=== PATIENT | female | born 1950 ===

== ENCOUNTER 2017-01-07 10:05 | Day surgery (SDC) | payer MEDICARE ==
[2016-12-31 09:49] VITALS: BMI 35.1
--- NOTE | 2017-01-07 12:27 | CP.SDSHP ---
Same Day Surgery H & P - History Proposed Procedure: Excision of Right face skin lesion. Excision of left medial breast skin lesion - Previous Medical/Surgical History Cardiac: Hypertension Pain: 0. No Pain - Allergies Allergies: Allergies No Known Allergies Allergy (Verified 12/31/16 09:39) - Physical Exam Vital Signs: Vital Signs 01/07/17 01/07/17 10:28 10:33 Temperature 97.6 F Pulse Rate 72 72 Respiratory 18 Rate Blood Pressure 135/82 O2 Sat by Pulse 98 Oximetry Mental Status: Alert & Oriented x3 Neuro: WNL GI: WNL - {Optional Preform as Required} Breast: Other (Left medial breast flat light brown maccule) - Impression Impression: 66F with Right face skin lesion, Left medial breast skin lesion Pt. Evaluated Today:Candidate for Anesthesia & Procedure: Yes - Date & Time Date: 01/07/17 Time: 12:27 Short Stay Discharge - Short Stay Discharge Admitting Diagnosis/Reason for Visit: D22.9 Disposition: HOME/ ROUTINE Referrals: Lam Lakhani MD [Primary Care Provider] - Progress Note/Discharge Note with Instructions: Patient is cleared for discharge. 1. Follow up with Dr. Maldonado in 10 days. Call for appointment 2. Take OTC Tylenol for pain as needed 3. You may shower in 48 hours, do not soak. 4. Return to the ER with any concerning symptoms.
[2017-01-07] MEDS ORDERED: Midazolam 2 MG/2 ML VIAL ONE (12:28)
[2017-01-07] MEDS ORDERED: Lidocaine 1% Inj (20ml) ONE (12:34)
[2017-01-07] MEDS ORDERED: Lidocaine 2% w Epi 1:100,000 Inj IJ ONE (12:34)
[2017-01-07] MEDS ORDERED: Bupivacaine 0.5% Inj(30mL) ONE (12:34)
[2017-01-07] MEDS ORDERED: Lactated Ringer's 1,000 ML IV ONE (12:42)
[2017-01-07] MEDS ORDERED: Metoprolol 1 mg/ml Inj IVP ONE (13:19)
[2017-01-07] MEDS ORDERED: Lactated Ringer's 1,000 ML IV SCH (13:24)
[2017-01-07] MEDS ORDERED: HYDROmorphone 0.5 mg/0.5 ml ISec IVP PRN (13:24)
[2017-01-07] MEDS ORDERED: Oxycodone/Acetaminophen 5/325 mg Tab PO PRN (13:32)
--- NOTE | 2017-01-07 14:35 | PCM.SURG1 ---
Surgeon's Initial Post Op Note - Surgeon's Notes Surgeon: Dr. Maldonado Piece Worker: Alvina PGY1 Type of Anesthesia: IV Sedation, Local Anesthesia Administered By: Dr. Neil Pre-Operative Diagnosis: Right Chin sikn lesion. Left medial breast skin lesion Operative Findings: same Post-Operative Diagnosis: same Operation Performed: Excision of right chin and left medial breast skin lesions Specimen/Specimens Removed: Right chin skin lesion. Left breast skin lesion Estimated Blood Loss: EBL {In ML}: 3 Blood Products Given: N/A Drains Used: No Drains Post-Op Condition: Good Date of Surgery/Procedure: 01/07/17 Time of Surgery/Procedure: 13:30
[2017-01-07 16:04] VITALS: BP 115/64; PULSE 66; RESP 18; TEMP 98.4
[2017-01-07 16:06] VITALS: O2SAT 97
--- NOTE | 2017-01-07 21:37 | OP ---
PROCEDURE DATE: 01/07/2017 PREOPERATIVE DIAGNOSES: Skin lesion, right chin. Skin lesion, medial left breast. SURGEON: Dr. Maldonado. LIBERAL ARTS DEAN: Dr. Tinsley. TYPE OF ANESTHESIA: Local with IV sedation. ANESTHESIA ADMINISTERED BY: Dr. Neil, DESCRIPTION OF PROCEDURE: With the patient in the supine position, having received IV sedation, the right lower face, neck, and upper chest were prepped and draped in the usual sterile manner. The patient had a 5 mm elevated pigmented lesion noted just beneath the chin line on the right side of the face. The skin surrounding this was infiltrated with 1% lidocaine, an elliptical incision was made. The lesion was excised with a full-thickness skin. Closure was performed with interrupted sutures of 5-0 Prolene. Attention was turned to the chest, where a 1 x 1 cm tail brown skin lesion which was slightly elevated was noted overlying the sternum just medial to the left breast. The skin surrounding this was infiltrated with 1% lidocaine and the lesion appeared to be more vertically oriented and elliptical incision was made in a vertical direction, taken down through the full-thickness skin, and the lesion was excised. The lesion appeared to extend through the full-thickness skin with some discoloration, possibly vascular malformation in the subcutaneous tissue beneath it, which was also excised. The skin was then closed with interrupted mattress sutures of 5-0 Prolene. Dry sterile dressings were applied. The patient tolerated the procedure well and transferred to recovery room in stable condition. Estimated blood loss for the procedure was 3 mL. Giana Maldonado MD
== END 2017-01-07 17:53 | disposition home or self-care (01) ==
LOC: H.OPSURG 10:05
PROVIDERS: ATTEND Specialist
DX: L82.1 Other seborrheic keratosis (principal); I10 Essential (primary) hypertension
CPT/HCPCS: 11402; 11440; 88305; J1170; J2250; J3010; J7120